=== PATIENT | female | born 1995 | race Caucasian/White ===

== ENCOUNTER 2025-07-14 19:37 | Emergency (ER) | payer BC, SELFPAY ==
[2025-07-14 19:44] VITALS: BP 124/80; PULSE 113; RESP 18; TEMP 37.4; O2SAT 98
[2025-07-14 19:45] VITALS: BP 124/80; BP 128/76; PULSE 104; PULSE 113; RESP 18; TEMP 37.4; O2SAT 98; BMI 37.1
--- NOTE | 2025-07-14 20:04 | PC.NURSE ---
pt olgaa from school reporting chest tightness and dyspnea w/ a PMH of asthma. PT used her rescue inhaler x2 times prior to EMS arrival and reported relief. PT presents with no increased work of breathing, clear lung sounds throughout on auscultation, and a room air saturation of 98%.
[2025-07-14 20:50] LABS: Hematocrit 45.9 % (37.0-47.0); Hemoglobin 15.3 g/dl (12.0-16.0); Imm Gran Abs Auto 0.02 X10*3/uL (0.00-0.03); Imm Gran Pct Auto 0.3 % (0.0-0.4); Lymphocytes Absolute Auto 0.8 X10*3/uL (1.2-4.9); MANUAL DIFF FLAG NO; Mean Corpuscular HGB Conc 33.3 g/dl (31.0-35.0); Mean Corpuscular Hemoglobin 30.8 pg (27.0-33.0); Mean Corpuscular Volume 92.4 fL (80.0-98.0); NRBC Abs Auto 0.000 X10*3/uL (0.0-0.012); NRBC Pct Auto 0.0 /100WBC (0.0-0.2); Platelet Count 200 X10*3/uL (160-400); Red Blood Count 4.97 X10*6/uL (4.20-5.50); White Blood Count 7.4 X10*3/uL (4.8-10.8)
[2025-07-14 21:26] LABS: Resp Syncy Virus RNA Qual PCR NEGATIVE (Negative); SARS COV2 PCR INHOUSE NEGATIVE (Negative)
[2025-07-14 21:41] LABS: Alanine Aminotransferase 23 U/L (0-31); Albumin Level 4.6 g/dL (3.5-5.0); Alkaline Phosphatase 46 U/L (39-117); Anion Gap 13 (12-20); Aspartate Amino Transferase 26 U/L (5-31); Blood Urea Nitrogen 16 mg/dL (9-16); Calcium 9.8 mg/dL (8.4-10.2); Carbon Dioxide 24 mmol/L (22-29); Chloride 106 mmol/L (96-108); Creatinine Clr Calc Pharmacy 89.1; Estimated Glomerular Filt Rate > 60; Potassium 4.1 mmol/L (3.3-5.1); Sodium 139 mmol/L (135-145); Total Protein 7.2 g/dL (6.5-8.0)
--- NOTE | 2025-07-14 23:49 | ED.ASTHMA ---
HPI - Asthma General Chief Complaint: Asthma Stated Complaint: Asthma Attack lungs sound clear Time Seen by Provider: 07/14/25 23:49 Source: patient Mode of arrival: ambulatory Limitations: no limitations History of Present Illness ED Provider: Dr. Yoselin Henry HPI Narrative: 29-year-old female with a history of asthma who developed sudden shortness of breath immediately after completing a choir performance earlier today. She had walked approximately half a mile across campus prior to performing. Following the performance, she experienced an intense coughing fit during which she was unable to inhale adequately. She did not have her rescue inhaler with her and borrowed another person?s inhaler, taking two puffs with partial relief; however, she continues to note persistent chest tightness. She reports intermittent subjective fevers and feeling sweaty. Cough is productive of sputum, though she is unsure of its color. She denies vomiting or diarrhea. No recent steroid courses. No known drug allergies. Other chronic conditions denied. Daily medications include Prozac, Buspar, and trazodone. She has an adequate supply of her albuterol rescue inhaler at home. History of prior asthma hospitalizations: As a child, patient required oxygen and nebulizer treatments for asthma, but has never required intubation or a breathing tube. Related Data Previous Rx's ?Medication ?Instructions ?Recorded oseltamivir 75 mg capsule (Tamiflu) 75 mg PO BID 5 days #10 caps 07/15/25 prednisone 50 mg tablet 50 mg PO DAILY 5 days #5 tabs 07/15/25 oseltamivir 75 mg capsule (Tamiflu) 75 mg PO BID 5 days #10 caps 07/17/25 prednisone 50 mg tablet 50 mg PO DAILY 5 days #5 tabs 07/17/25 Allergies Allergy/AdvReac Type Severity Reaction Status Date / Time No Known Allergies Allergy Verified 07/14/25 19:53 Review of Systems Review of Systems: as per HPI, full review of systems performed and negative but for the above mentioned pertinent positives and negatives. [facility] Social History Social History Alcohol intake: never Smoked in Last 30 Days: No Use of substances other than those prescribed or required for medical reasons: No Advance Directives: No Advance Directives Information Provided: Yes Do you have a plan to hurt others: No Plan Patient : No Physical Exam Exam: Exam: GENERAL: Ill-Appearing, appears uncomfortable. SKIN: Normal skin color for ethnicity, warm, dry, no rashes noted. HEENT:? Normocephalic, atraumatic, no stridor, dry mucous membranes, dentition intact, EOMI. NECK: Soft, supple, full ROM, midline structures nontender, no step-offs, no deformities, no lymphadenopathy. CHEST: Heart regular tachycardia, no murmurs, symmetric chest rise and fall. PULMONARY: Clear to auscultation bilaterally, diminished at the bases, no labored breathing, no wheezes/rhales/rhonchi. ABDOMINAL: Soft, nondistended, nontender, positive bowel sounds in all quadrants. : Deferred. MUSCULOSKELETAL: Normal tone, full range of motion, no deformities, no peripheral edema. NEURO: Alert and oriented x3, CN II through XII intact, equal strength and sensation bilateral upper and lower extremities, no focal neurologic deficits.? PSYCHIATRIC: Flat affect, fluid speech, good eye contact and appropriate demeanor. Vital Signs: Vital Signs: Last Vital Signs Temp 98.1 F 07/15/25 00:45 Pulse 93 07/15/25 00:45 Resp 17 07/15/25 00:45 BP 131/58 L 07/15/25 00:45 Pulse Ox 97 07/15/25 00:45 O2 Del Method Room Air 07/15/25 00:45 BMI result Body Mass Index 37.1 Medications Administered Discontinued Medications Generic Name Dose Route Start Last Admin Trade Name Freq PRN Reason Stop Dose Admin Oseltamivir Phosphate 75 mg 07/15/25 00:20 07/15/25 00:32 Oseltamivir Phosphate 75 Mg Capsule PO 07/15/25 00:21 75 mg ONCE ONE Administration Prednisone 50 mg 07/15/25 00:20 07/15/25 00:32 Prednisone 10 Mg Tablet PO 07/15/25 00:21 50 mg ONCE ONE Administration Medical Decision Making Medical Decision Making MDM Narrative: Patient presents today with flu-like symptoms. Differential diagnosis includes influenza, coronavirus, pneumonia, upper respiratory infection, among others. Most importantly, this patient is not in any acute respiratory distress. They have normal oxygen levels at room air. Problem #1: Influenza infection Assessment: Symptomatic influenza confirmed by rapid test; patient within 48-hour treatment window. Reports intermittent fever and systemic symptoms. Plan: - Administer first dose of oseltamivir (Tamiflu) in clinic; prescription sent to [facility] pharmacy (school pharmacy at [facility]). - Discussed potential side effects (diarrhea, nausea) and that medication shortens illness duration but is not curative. - Infection control counseling: hand hygiene, mask use, avoid public activities/classes until fever-free >24 hours. Problem #2: Asthma exacerbation Assessment: Acute episode triggered during choir performance; partially relieved with 2 puffs of borrowed albuterol. Persistent chest tightness but improving. Plan: - Prescribed short course of oral steroids to reduce airway inflammation. - Continue albuterol rescue inhaler PRN; advised to use for coughing fits/bronchospasm. - Red-flag instruction: return to ED if inhaler required more frequently than every 2 hours or if breathing worsens. I have discussed medication and other home therapies that will help the patient and have discussed strict return precautions. Instructed that symptoms may worsen and the patient might need re-evaluation or even hospitalization in the future, but did not show signs of this at the time of discharge. Differential Diagnosis Differential Diagnoses: The differential diagnosis associated with the presentation includes (as above) Admission/Observation Consideration of admission/observation: Escalation of care including admission/observation considered Lab Data MDM Lab Attestation statement: I reviewed the patient's lab results. 07/14/25 20:44 07/14/25 21:20 Labs: Lab Results 07/14/25 07/14/25 Range/Units 20:44 21:20 WBC 7.4 (4.8-10.8) X10*3/uL RBC 4.97 (4.20-5.50) X10*6/uL Hgb 15.3 (12.0-16.0) g/dl Hct 45.9 (37.0-47.0) % MCV 92.4 (80.0-98.0) fL MCH 30.8 (27.0-33.0) pg MCHC 33.3 (31.0-35.0) g/dl RDW 11.6 (11.0-16.0) % Plt Count 200 (160-400) X10*3/uL MPV 9.8 (9.4-12.3) fL Immature Gran % (Auto) 0.3 (0.0-0.4) % Neut % (Auto) 81.3 H (45-73) % Lymph % (Auto) 10.8 L (20-40) % Wilson % (Auto) 6.9 (2-11) % Eos % (Auto) 0.4 (0-4) % Baso % (Auto) 0.3 (0-2) % Lymph # (Auto) 0.8 L (1.2-4.9) X10*3/uL Wilson # (Auto) 0.5 (0.1-1.2) X10*3/uL Eos # (Auto) 0.0 (0.0-0.4) X10*3/uL Baso # (Auto) 0.0 (0.0-0.2) X10*3/uL Abs Immat Gran (auto) 0.02 (0.00-0.03) X10*3/uL Absolute Neuts (auto) 6.0 (2.0-8.3) x10*3/uL Absolute Nucleated RBC 0.000 (0.0-0.012) X10*3/uL Nucleated RBC % (auto) 0.0 (0.0-0.2) /100WBC Sodium 139 (135-145) mmol/L Potassium 4.1 (3.3-5.1) mmol/L Chloride 106 (96-108) mmol/L Carbon Dioxide 24 (22-29) mmol/L Anion Gap 13 (12-20) BUN 16 (9-16) mg/dL Creatinine 1.03 (0.5-1.4) mg/dL Estim Creat Clear Calc 89.1 Estimated GFR > 60 Random Glucose 116 H (60-115) mg/dL Calcium 9.8 (8.4-10.2) mg/dL Total Bilirubin 0.3 (0.0-1.0) mg/dL AST 26 (5-31) U/L ALT 23 (0-31) U/L Alkaline Phosphatase 46 (39-117) U/L Total Protein 7.2 (6.5-8.0) g/dL Albumin 4.6 (3.5-5.0) g/dL Beta HCG, Quant < 2 mIU/mL Influenza Type A (PCR) POSITIVE A (Negative) Influenza Type B (PCR) NEGATIVE (Negative) RSV RNA Qual (PCR) NEGATIVE (Negative) SARS-CoV-2 RNA (RT-PCR) NEGATIVE (Negative) Independent Interpretation I performed an independent interpretation of an: Plain X-Ray Interpretation: My independent interpretation of the chest x-ray reveals no consolidations, pulmonary edema, pleural effusion, pneumothorax, obvious bony abnormalities. Radiology Impression Discussion of test interpretation with radiology: I have reviewed the radiologist's reading. Prescription Management I considered prescription management with: Antiviral Chronic Conditions Patient?s care impacted by: Other (asthma) Discharge Plan Discharge Clinical Impression: Influenza A, Asthma with acute exacerbation Patient Disposition: Home, Self-Care Instructions: Asthma (ED), Influenza (ED) Additional Instructions: Take your Tamiflu until the course is completed. Do not stop this medication early if you start to feel better. Remember that it can cause nausea, vomiting and diarrhea which is a side effect of this drug. If you can not tolerate the medication, stop using it. Take prednisone for the next 5 days for your asthma. This will help with lung inflammation. Use your inhaler as needed for wheezing or coughing fits. If you have to use your inhaler more than once every 2 hours, that is a red flag to return to the emergency department. Try to isolate as much as possible over the next several days until you are fever free for more than 24 hours. Influenza is extremely contagious and you should try to wash your hands and wear a mask in public. Prescriptions: New oseltamivir [Tamiflu] 75 mg capsule 75 mg PO BID 5 Days Qty: 10 0RF prednisone 50 mg tablet 50 mg PO DAILY 5 Days Qty: 5 0RF oseltamivir [Tamiflu] 75 mg capsule 75 mg PO BID 5 Days Qty: 10 0RF prednisone 50 mg tablet 50 mg PO DAILY 5 Days Qty: 5 0RF Interventions: ED Discharge Assessment Last Done: 07/15/25 00:45 Discharge Date/Time: 07/15/25 00:46 Print Language: Singaporean
[2025-07-15 00:25] VITALS: BP 131/58; PULSE 93; RESP 17; TEMP 36.7; O2SAT 97
[2025-07-15 00:45] VITALS: BP 131/58; PULSE 93; RESP 17; TEMP 36.7; O2SAT 97
== END 2025-07-15 00:46 | disposition home or self-care (01) ==
PROVIDERS: Emergency Provider Emergency Medicine
DX: J10.1 Influenza due to other identified influenza virus with other respiratory manifestations (principal); J45.901 Unspecified asthma with (acute) exacerbation; Z79.899 Other long term (current) drug therapy; Z03.818 Encounter for observation for suspected exposure to other biological agents ruled out
CPT/HCPCS: 80053; 84702; 85025; 87637; 99283; 99284